=== PATIENT | male | born 1990 | race Caucasian/White ===

== ENCOUNTER 2017-01-28 19:22 | Emergency (ER) | payer MEDICAID ==
[~2017-01-28] VITALS: Ht 182.9 cm; Wt 130.5 kg
[2017-01-28 19:43] VITALS: Ht 182.9 cm; Wt 130.5 kg
[2017-01-28] MEDS ORDERED: CEPH-443 PO (20:55)
[2017-01-28] MEDS ORDERED: SULF1TAB31 PO (20:55)
--- NOTE | 2017-01-28 20:58 | ERD ---
ER Documentation Chief Complaint Date/Time DATE: 01/28/17 TIME: 20:56 Chief Complaint Spider bite on the left inner thigh HPI 26-year-old otherwise healthy male presents with rash on the left inner thigh for 2 days. He thinks it is secondary to being bit by an insect but he did not actually witnessed insect bite. Denies fever. Denies any pain or itchiness. He has not had any drainage from it but does state he has some blood come out of it. ROS All systems reviewed and are negative except as per history of present illness. Medications Home Meds Active Scripts Cephalexin* (Keflex*) 500 Mg Capsule, 500 MG PO QID for 7 Days, CAP Prov:MARCI SCOTT PA-C 01/28/17 Sulfamethoxazole/Trimethoprim* (Bactrim Ds* Tablet) 1 Each Tablet, 1 TAB PO BID , #20 TAB Prov:MARCI SCOTT PA-C 01/28/17 Allergies Allergies: Coded Allergies: No Known Allergy (Unverified , 01/28/17) PMhx/Soc Medical and Surgical Hx: pt denies Medical Hx History of Surgery: Yes (LEFT EYE SX) Anesthesia Reaction: No Hx Alcohol Use: No Hx Substance Use: No Hx Tobacco Use: No Smoking Status: Never smoker FmHx Family History: No diabetes Physical Exam Vitals Vital Signs Date Time Temp Pulse Resp B/P Pulse Ox O2 Delivery O2 Flow Rate FiO2 01/28/17 19:43 97.9 88 20 156/97 98 Physical Exam General: well developed, well nourished, alert, nontoxic, no distress Head: normocephalic, atraumatic Respiratory: Clear to auscaultation bilaterally, speaks in full sentences, no use of accesory muscles or labored breathing, no rales, ronchi, or wheezing Cardiovascular: RRR, No murmurs Extremities: moving all extremities normally, normal gait, no edema Skin: Left upper medial thigh has an area of mild erythema with a smile bite- like lesion in the center approximately 5 cm in diameter, no bleeding or drainage, no induration, no warmth Procedures/MDM 26-year-old male presents with possible insect bite. He is afebrile well- appearing. Looks more allergic as opposed to infectious however he is concerned he may be infected and therefore I will still treat him with Bactrim and Keflex for his request. Recommended this patient follow up with her primary care doctor within 48 hours or return to the emergency room for any worsening of symptoms. However this time I do believe there is suitable for outpatient management. I answered all their questions and they agreed with the plan and were discharged home. Departure Diagnosis: Primary Impression: Rash Condition: Stable Patient Instructions: Insect Bite Additional Instructions: Call your primary care doctor TOMORROW for an appointment during the next 1-2 days.See the doctor sooner or return here if your condition worsens before your appointment time. MARCI SCOTT PA-C January 28, 2017 20:58
== END 2017-01-28 21:03 | disposition home or self-care (01) ==
LOC: FTE 19:22
DX: R21 Rash and other nonspecific skin eruption (principal)
CPT/HCPCS: 99284